=== PATIENT | male | born 1990 | race Caucasian/White ===

== ENCOUNTER 2017-10-08 02:28 | Emergency (ER) | payer BC ==
[~2017-10-08] VITALS: Ht 170.2 cm; Wt 88.5 kg
[2017-10-08 02:41] VITALS: BP_SYST 155
[2017-10-08 03:55] VITALS: BP_SYST 132
== END 2017-10-08 03:55 | disposition home or self-care (01) ==
LOC: SED 02:28
DX: M94.0 Chondrocostal junction syndrome [Tietze] (principal)
CPT/HCPCS: 93005; 99283